=== PATIENT | female | born 1990 | race Caucasian/White ===

== ENCOUNTER → 2017-10-10 | Outpatient (CLI) | payer OTHER | END | disposition home or self-care (01) | LOC: C.LABSPEC 13:11 | PROVIDERS: ATTEND Physician Assistant | DX: Z12.4 Encounter for screening for malignant neoplasm of cervix (principal) ==

== ENCOUNTER → 2017-10-10 | Outpatient (CLI) | payer OTHER | END | disposition home or self-care (01) | LOC: C.PAPS 13:41 | PROVIDERS: ATTEND Physician Assistant | DX: Z12.4 Encounter for screening for malignant neoplasm of cervix (principal); R87.612 Low grade squamous intraepithelial lesion on cytologic smear of cervix (LGSIL) ==

== ENCOUNTER → 2017-10-27 | Outpatient (CLI) | payer OTHER | END | disposition home or self-care (01) | LOC: C.PATHSPEC 13:16 | PROVIDERS: ATTEND Obstetrics & Gynecology | DX: R87.612 Low grade squamous intraepithelial lesion on cytologic smear of cervix (LGSIL) (principal) ==

== ENCOUNTER 2020-05-24 05:58 | Inpatient (IN) ==
--- NOTE | 2020-05-24 13:56 | History & Physical Report ---
Date of Service May 24, 2020 Assessment & Plan (1) Encounter for induction of labor: 29 yo female presents to L&D at 40 3/7 weeks for IOL due to post dates. Proceed with induction of labor per Pitocin augmentation protocol. Initial labs and orders placed. Will continue to monitor patient. Pt desires epidural for pain control; consult placed to anesthesiology. Will await pt request for epidural. Anticipate . (2) : Pt states that she is having a boy (naming him Umer); she does plan to circumcise baby. Pt does plan to breastfeed. See above for induction of labor management. Admission and Anticipated Discharge Date Admission Date: May 24, 2020 History of Present Illness Primary Care Provider: NO PCP Nidia Smith is a 29 y/o female currently at 40 3/7 WGA with an RODNEY 05/21/20 as determined by LMP, confirmed by US#1, who is here for induction of due to post dates. Her was uncomplicated. - contractions; + movement; - fluid loss; - bloody show Had regular appointments with OB. Blood type: O+ Antibody screen: Neg H.4 (today) Hct: 35.2 (today) WBC: 14.1 (today) Plt: 250 (today) Rubella: immune (11/09/19) VDRL/RPR: nonreactive (11/09/19) Gonorrhea: neg (11/09/19) Chlamydia: neg (11/09/19) HIV: neg (11/09/19) HbSAg: neg (11/09/19) GBS: neg (04/27/20) COVID-19 negative 05/18/20 Other screens: cff-DNA: negative CF: declined SMA: declined Allergies Allergy/AdvReac Type Severity Reaction Status Date / Time No Known Allergies Allergy Verified 05/24/20 13:29 Home Medications Home Medications Medication Instructions Recorded Confirmed Type phdhbmcm-cys-Nt-FA 1 tab PO DAILY 05/24/20 05/24/20 History [] Patient History Medical History (Updated 05/24/20 @ 14:42 by Malorie Ramos) Encounter for anatomic survey Hx of varicella LGSIL on Pap smear of cervix Surgical History [place] teeth removed Family History Aunt Colorectal cancer Grandmother (Paternal) Ovarian cancer Grandfather (Maternal) Diabetes Social History Smoking Status: Never smoker Hx Alcohol Use: No Hx Substance Use: No Preferred Language: Frisian Crystal Slicer Required: No Beliefs That Will Affect Care: None marital status: Single marital status details: Braeden Almonte (27) [phone] Current Living Situation: Significant Other Current Living Situation Comment: lives with Jonas Deras current occupational status: employed 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 Denies shortness of breath. Denies chest pain. Denies breast pain. Denies dysuria, urinary frequency, or urinary urgency. Denies leg pain or leg swelling. Denies headache or changes in vision. Physical Exam Physical Exam: General: Alert, oriented. No acute distress. Cardiac: Regular rate and rhythm, no murmurs/rubs/gallops. Respiratory: Clear to auscultation bilaterally a/p, no wheezes/rales/rhonchi. No increased work of breathing. Symmetrical chest rise. No respiratory distress. Abdomen: Gravid. Full term. Bowel sounds active. No tenderness to palpation. Pelvic: Dilation 3cm; Effacement 80%; Station -[address] Leonard External FHT and external uterine monitors used; Category I tracing; moderate FHT variability. Mild int ctx. Lower Extremities: No lower extremity edema or swelling. No deep calf pain. Opal's negative bilaterally Results & Data ([facility]) Vital Signs (Past 12 Hours) Vital Signs Temp Pulse Resp BP 05/24/20 13:32 37.2 C 16 05/24/20 13:27 95 H 116/71 Supervising Physician Co-Signing Physician Notes Resident Physician Supervision Note: I interviewed and examined the patient. Discussed with Dr. Orantes and agree with findings and plan as documented in the note. Any exceptions or clarifications are listed here: at 40+ weeks here for induction for postdates. Uncomplicated . Favorable cervix. Category one strip. adria. Plan pit, arom, epidural. Anticipate . Documented By: Katie Leonard MD, FACOG
[2020-05-24 14:18] LABS: Hematocrit (blood only) 35.2 % (37-47); Hemoglobin 11.4 g/dL (12.0-16.0); Mean Corpuscular Hemoglobin 28.4 pg (25-34); Mean Corpuscular Volume 87.8 fL (80-100); Mean Platelet Volume 10.3 fL (7.4-10.4); Platelet Count 250 K/uL (130-400); RDW Coefficient of Variation 13.7 % (11.5-14.5); RDW Standard Deviation 43.9 fL (36.4-46.3); Red Blood Count 4.01 M/uL (4.2-5.4)
[2020-05-24 14:19] LABS: Mean Corpuscular Hgb Conc 32.4 g/dL (32-36)
[2020-05-24] MEDS ORDERED: OXYTOCIN 30 UNITS/500 ML BAG IV PRN (14:30)
[2020-05-24] MEDS ORDERED: OXYTOCIN 30 UNITS/500 ML BAG IV SCH (14:30)
--- NOTE | 2020-05-24 14:37 | Medical Student H&P ---
Date of Service May 24, 2020 Assessment & Plan (1) Encounter for induction of labor: - Begin Pitocin at 2 mU/min and raise by 2. Anticipate AROM to augment. - Plans for epidural. Anesthesia consult placed. - Anticipate . - Continue to monitor. Admission and Anticipated Discharge Date Admission Date: May 24, 2020 History of Present Illness Chief Complaint: Induction of Labor Primary Care Provider: NO PCP Nidia Smith is a 29 y/o currently at 40w3d with an RODNEY 05/21/20 as determined by LMP who is here for induction of labor due to postdate . She had an uncomplicated course. - contractions; + movement; - fluid loss; - bloody show Had regular appointments with OB. Labs Blood type: O+ Antibody screen: negative H.2 (03/03/20) Hct: 33.1% (03/03/20) Rubella: immune (11/09/19) VDRL/RPR: nonreactive (11/09/19) Gonorrhea: neg (11/09/19) Chlamydia: neg (11/09/19) HIV: neg (11/09/19) HbSAg: neg (11/09/19) GBS: neg (04/27/20) COVID: neg (05/18/20) Other Screens: Declined cfDNA, CF/SMA, AFP Allergies Allergy/AdvReac Type Severity Reaction Status Date / Time No Known Allergies Allergy Verified 05/24/20 13:29 Home Medications Home Medications Medication Instructions Recorded Confirmed Type wexwkdou-kan-Nn-FA 1 tab PO DAILY 05/24/20 05/24/20 History [] Patient History Medical History (Updated 05/24/20 @ 14:42 by Malorie Ramos) Encounter for anatomic survey Hx of varicella LGSIL on Pap smear of cervix Surgical History [place] teeth removed Family History Aunt Colorectal cancer Grandmother (Paternal) Ovarian cancer Grandfather (Maternal) Diabetes Social History Smoking Status: Never smoker Hx Alcohol Use: No Hx Substance Use: No Preferred Language: Sinhala Hand 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 Denies shortness of breath. Denies chest pain. Denies breast pain. Denies dysuria, urinary frequency, or urinary urgency. Denies leg pain or leg swelling. Denies headache or changes in vision. Physical Exam Physical Exam: General: Alert and oriented x 3. Patient in no acute distress and resting comfortably on ecam. Cardiac: Regular rate and rhythm. S1 and S2 present. No murmurs, rubs, or gallops. Respiratory: Clear to auscultation bilaterally a/p, no adventious lung sounds. No increased work of breathing. No respiratory distress. Abdomen: Gravid. Full term. Bowel sounds active. No tenderness to palpation. EFW 7-8#. Pelvic: Dilation 3cm; Effacement 80%; Station -[address] Leonard. External FHT and external uterine monitors used; Category I tracing; moderate FHT variability. Mild int ctx. Lower Extremities: No lower extremity calor, edema, or erythema. No deep calf pain. Opal's negative bilaterally. Results & Data ([facility]) Vital Signs (Past 12 Hours) Vital Signs Temp Pulse Resp BP 05/24/20 13:32 37.2 C 16 05/24/20 13:27 95 H 116/71 Code Status & VTE Plan VTE Prophylaxis Plan VTE Prophylaxis will be ordered: No Supervising Attestation Patient seen and evaluated with MS 2. Please see resident H&P.
[2020-05-24] MEDS: LACTATED RINGER'S 1,000 ML IV PRN ×3 (14:38→22:32)
[2020-05-24] MEDS ORDERED: BUPIVACAINE 0.25% 30 ML VIAL ONE ×2 (18:29→21:27)
[2020-05-24] MEDS ORDERED: ePHEDrine sulfate 50 MG/ML AMP ONE ×2 (18:29→21:27)
[2020-05-24] MEDS ORDERED: fentaNYL citrate 100 MCG/2 ML VIAL ONE ×2 (18:29→21:27)
[2020-05-24] MEDS ORDERED: fentaNYL 2MCG/ML ROPIV 1.25MG/ML 100 ML BAG EPI ONE ×2 (18:30→21:28)
--- NOTE | 2020-05-24 19:02 | Anesthesiology Consultation ---
Date of Service May 24, 2020 Covid 19 negative on 05/18/20. Assessment & Plan Chart Review Chart Review: Patient NOT seen in Pre Admission Testing and Acceptable Risk for Labor Epidural Consults Requested none ASA ASA2 Proposed Anesthesia Anesthesia Type: Labor Epidural and CSE Risk / Benefits Reviewed With: PT / POA / Parent / Guardian, Accepts Plan and Informed Consent Obtained History Height/Weight Height: 5 ft 3 in Weight: 80.739 kg Allergies Allergy/AdvReac Type Severity Reaction Status Date / Time No Known Allergies Allergy Verified 05/24/20 13:29 Medications Home Medications Medication Instructions Recorded Confirmed Last Taken xywysnxx-vfq-Xz-FA 1 tab PO DAILY 05/24/20 05/24/20 05/23/20 21:00 [] Active Medications Generic Name Dose Route Start Last Admin Trade Name Freq PRN Reason Stop Dose Admin Lactated Ringer's 1,000 mls @ 125 mls/hr 05/24/20 14:30 05/24/20 18:35 Lr IV 05/26/20 14:29 999 mls/hr .Q8H PRN Infusion L&D Protocol Protocol Oxytocin 30 units in 500 mls @ 12 mls/hr 05/24/20 14:30 05/24/20 18:00 Pitocin IV 06/23/20 14:29 0.72 units/hr .Q24H FERNY 12 mls/hr Titration Protocol 0.72 UNITS/HR NPO Date Last Intake of Fluids: 05/24/20 Time Last Intake of Fluids: 18:00 Date Last Intake of Solids: 05/24/20 Time Last Intake of Solids: 10:30 Past Medical History Medical History Encounter for anatomic survey Hx of varicella LGSIL on Pap smear of cervix Exercise / Class Metabolic Activity II 4-5 Yardwork/Stairs/Walk up hill Past Family History Family History Aunt Colorectal cancer Grandmother (Paternal) Ovarian cancer Grandfather (Maternal) Diabetes Past Surgical History Surgical History [place] teeth removed Past Anesthesia History No Hx of Anesthesia Complications and No Family Hx of Anesthesia Complications History of PONV No Hx of PONV and No Hx of Motion Sickness Social History Smoking Status: Never smoker Hx Alcohol Use: No Hx Substance Use: No substance use type: does not use Review of Systems no chest pain or sob Physical Exam Vital Signs Last Vital Signs Temp 37.2 C 05/24/20 13:32 Pulse 89 05/24/20 18:59 Resp 16 05/24/20 13:32 BP 136/79 05/24/20 18:37 Pulse Ox 100 05/24/20 18:59 ENMT Mouth: no TMJ abnormality Thyromental Distance: > or= 3.5 Finger Breadths Mallampati Class: II Neck normal visual inspection Respiratory normal respiratory effort Auscultation: lungs clear to auscultation bilaterally Cardiovascular Rate/Rhythm: regular rate and regular rhythm Musculoskeletal Spine: normal cervical ROM Neurologic moves all extremities Psychiatric Orientation: alert and oriented x 3 Testing Laboratory Results 05/24/20 14:09
[2020-05-24] MEDS ORDERED: NALOXONE HCL 1 MG in SODIUM CHLORIDE 0.9% 1000ML 1,000 ML IV PRN (19:15)
[2020-05-24] MEDS ORDERED: DiphenhydrAMINE HCL 50 MG/ML VIAL IV PRN (19:15)
[2020-05-24] MEDS ORDERED: NALOXONE HCL 0.4 MG/1 ML VIAL/CARP IV PRN (19:15)
[2020-05-24] MEDS ORDERED: ONDANSETRON INJ 2 MG/ML 2 ML VIAL IV PRN (19:15)
[2020-05-24] MEDS ORDERED: fentaNYL 2MCG/ML ROPIV 1.25MG/ML 100 ML BAG EPI PRN (19:15)
[2020-05-24] MEDS: ePHEDrine sulfate 50 MG/ML AMP IV PRN ×2 (22:00→22:03)
--- NOTE | 2020-05-24 22:54 | Labor Progress Brief Note ---
Date of Service May 24, 2020 Subjective Patient now much more comfortable with epidural Assessment & Plan (1) Encounter for induction of labor: Admission and Anticipated Discharge Date Admission Date: May 24, 2020 iupc placed. pit to mvus of >200. fetus category one. anticipate . Physical Exam Constitutional: WD/WN, vitals as above Psychiatric: A+Ox3, euthymic affect Genitourinary: cx--4/90/-2 toco--q2-4min, pit at 16 efm--130 with mod variability , accels present, no decels iupc placed Results & Data ([facility]) Vital Signs (Past 12 Hours) Vital Signs Temp Pulse Resp BP Pulse Ox 05/24/20 22:48 107 H 100 05/24/20 22:44 106 H 100 05/24/20 22:42 95 H 87 L 05/24/20 22:41 93 H 142/79 H 05/24/20 22:39 93 H 100 05/24/20 22:36 108 H 133/78 05/24/20 22:34 108 H 100 05/24/20 22:30 96 H 137/80 05/24/20 22:29 102 H 100 05/24/20 22:25 105 H 93 05/24/20 22:24 98 H 136/77 99 05/24/20 22:22 109 H 134/72 05/24/20 22:20 18 05/24/20 22:19 109 H 147/70 H 100 05/24/20 22:15 117 H 18 139/90 05/24/20 22:14 110 H 99 05/24/20 22:12 106 H 90 05/24/20 22:11 97 H 128/70 05/24/20 22:10 22 05/24/20 22:09 111 H 98 05/24/20 22:06 137 H 119/67 05/24/20 22:05 20 05/24/20 22:04 125 H 117/72 91 05/24/20 22:02 92 H 109/55 L 05/24/20 22:01 80 117/57 L 05/24/20 22:00 22 05/24/20 21:59 78 100 05/24/20 21:58 86 84/49 L 05/24/20 21:54 104 H 100 05/24/20 21:51 96 H 91 05/24/20 21:49 80 100 05/24/20 21:46 71 113/57 L 05/24/20 21:44 74 100 05/24/20 21:39 83 100 05/24/20 21:34 79 100 05/24/20 21:31 95 H 125/80 05/24/20 21:29 76 99 05/24/20 21:24 87 100 05/24/20 21:20 37.0 C 18 05/24/20 21:19 78 100 05/24/20 21:16 79 115/67 05/24/20 21:14 81 100 05/24/20 21:09 86 100 05/24/20 21:04 82 99 05/24/20 21:01 80 112/65 05/24/20 20:59 82 99 05/24/20 20:54 82 99 05/24/20 20:49 88 99 05/24/20 20:47 81 119/68 05/24/20 20:44 90 18 99 05/24/20 20:39 82 100 05/24/20 20:34 81 99 05/24/20 20:33 81 115/66 05/24/20 20:29 84 100 05/24/20 20:24 86 100 05/24/20 20:19 83 99 05/24/20 20:16 82 110/57 L 05/24/20 20:14 83 100 05/24/20 20:09 83 100 05/24/20 20:04 85 100 05/24/20 20:01 77 114/60 05/24/20 20:00 18 05/24/20 19:59 86 99 05/24/20 19:54 82 100 05/24/20 19:49 91 H 100 05/24/20 19:48 97 H 117/78 05/24/20 19:46 36.9 C 20 05/24/20 19:44 100 H 100 05/24/20 19:39 99 H 99 05/24/20 19:34 105 H 100 05/24/20 19:30 98 H 16 111/63 05/24/20 19:29 102 H 99 05/24/20 19:26 99 H 120/65 05/24/20 19:25 18 05/24/20 19:24 102 H 100 05/24/20 19:20 16 05/24/20 19:19 105 H 114/73 100 05/24/20 19:17 102 H 114/69 05/24/20 19:15 96 H 16 126/78 05/24/20 19:14 98 H 100 05/24/20 19:13 87 125/67 05/24/20 19:11 89 120/66 05/24/20 19:09 85 123/66 100 05/24/20 19:04 105 H 100 05/24/20 18:59 89 100 05/24/20 18:57 36.8 C 18 05/24/20 18:54 87 100 05/24/20 18:49 87 100 05/24/20 18:44 88 100 05/24/20 18:39 90 100 05/24/20 18:37 97 H 136/79 05/24/20 18:34 89 100 05/24/20 18:32 88 129/78 05/24/20 17:37 86 119/73 05/24/20 16:37 87 117/71 05/24/20 15:37 77 102/55 L 05/24/20 14:37 100 H 116/73 05/24/20 13:32 37.2 C 16 05/24/20 13:27 95 H 116/71 Coding Level of Care Code None Diagnoses Encounter for induction of labor Z34.90
[2020-05-25] MEDS ORDERED: ACETAMINOPHEN 325 MG TAB PO PRN (02:46)
[2020-05-25] MEDS ORDERED: OXYCODONE/ACETAMINOPHEN 5mg/325mg TAB PO PRN (02:46)
--- NOTE | 2020-05-25 02:53 | Delivery Summary ---
Vaginal Delivery Summary Date of Service May 25, 2020 Vaginal Delivery Summary Pre-operative Diagnosis: Postdates at 40+ weeks induction of labor Post-operative Diagnosis: same maternal exhaustion Procedure: pitocin induction epidural srom vavd bilateral labial lacs and first degree with repair EBL: 400cc Anesthesia: epidural Procedure: The patient pushed for about 1 hour and twenty minutes and brought the baby down to +2-3 station. She started to note exhaustion. I offered vacuum assist. Discussed r/b/se with the patient and she agrees. The vacuum was applied to the vertex in bryce position and over two contractions, with no pop offs, she delivered a viable male infant in bryce position. The vacuum was removed, the pressure never greater than 50mm h2o.The rest of the was then delivered without difficulty. The baby was vigorous. The nose and mouth were bulb suctioned and the infant was placed in the maternal abdomen for drying and attention. Cord was clamped and cut at one minute of life. Cord blood and segment obtained. Placenta delivered spontaneous, intact with a three vessel cord. Cervix/sulci/rectum were intact. Bilateral labial lacerations and a first degree perineal laceration was repaired in the normal standard fashion. Hemostasis obtained with dilute pitocin and fundal massage. Apgars were 8/9. Mother and baby doing well at the end of the delivery. [facility] Vaginal Delivery Charge Vaginal Delivery Codes: 02324 global code for the antepartum, delivery, and post- (vacuum assisted vaginal delivery)
[2020-05-25] MEDS ORDERED: BENZOCAINE 20% AER SPR 82.5 GM CAN EXT PRN (02:59)
[2020-05-25] MEDS ORDERED: SUPERCREAM 0.870% 15 GM JAR EXT PRN (02:59)
[2020-05-25] MEDS ORDERED: bisacodyL 10 MG SUPP PR PRN (02:59)
[2020-05-25] MEDS ORDERED: OXYTOCIN 30 UNITS/500 ML BAG IV PRN (02:59)
[2020-05-25] MEDS ORDERED: HYDROCORTISONE ACETATE 25 MG SUPP PR PRN (02:59)
[2020-05-25] MEDS ORDERED: DIPHTHERIA/TETANUS/PERTUSSIS 0.5 ML SYR/VIAL IM ONE (02:59)
[2020-05-25] MEDS: IBUPROFEN 600 MG TAB PO PRN ×3 (03:29→17:28)
[2020-05-25] MEDS: PRENATAL VITAMIN 1 TAB PO SCH (08:39)
[2020-05-25] MEDS: DOCUSATE SODIUM 100 MG CAP PO SCH ×2 (08:39→21:02)
--- NOTE | 2020-05-25 09:01 | Anesthesia Procedure Note ---
Date of Service May 25, 2020 Anesthesia Post Epidural Note Vital Signs Vital Signs: Temp Pulse Resp BP Pulse Ox 36.8 C 94 H 18 115/73 100 05/25/20 05:45 05/25/20 05:45 05/25/20 05:45 05/25/20 05:45 05/25/20 02:18 Pain Intensity Lower Abdomen: Pain Intensity: 0 Bilateral Episiotomy/Laceration: Pain Intensity: 3 Notes Mental Status: alert / awake / arousable and participated in evaluation Nausea / Vomiting: adequately controlled Pain: adequately controlled Airway Patency, RR, SpO2: stable & adequate BP & HR: stable & adequate Hydration State: stable & adequate Neuraxial Anesthesia: was administered and sensory block is resolving Anesthetic Complications: no major complications apparent Epidural: Removed without complications and With tip intact
[2020-05-26 06:12] LABS: Hematocrit (blood only) 28.3 % (37-47); Hemoglobin 9.4 g/dL (12.0-16.0)
--- NOTE | 2020-05-26 06:38 | Obstetrical Progress Note ---
Date of Service <Karla Orantes DO - Last Filed: 05/26/20 07:21> May 26, 2020 Assessment & Plan <Karla Orantes DO - Last Filed: 05/26/20 07:21> (1) Normal course: - Feels well today. Eating well, voiding well, ambulating well. - Plan for lactaction consult prior to d/c home. - Pain well controlled with ibuprofen 600mg Q4H PRN - Routine care -- OOB, ambulation, diet progression as tolerated - After discharge will have 6 week follow-up with Dr. Leonard - Pt would like to be d/c home today. - Requesting rx for breast pump Subjective <Karla Orantes DO - Last Filed: 05/26/20 07:21> Nidia Gonzalez is a 29 y/o female who is PPD #1 following IOL with VAVD and epidural at 40 3/7 weeks. She reports feeling well overall this morning. Minimal abdominal cramping and 2/10 pain well managed on analgesics. Voiding without difficulty. Tolerating meals overnight without difficulty. Patient has been able to ambulate some. + passing gas and no bowel movement. Has persistent lochia with improvement this morning. Currently . Review of Systems Denies fever or chills. Denies shortness of breath or cough. Denies chest pain. Denies breast pain. Denies nausea or vomiting. Denies dysuria. Denies leg pain or leg swelling. Denies headache or changes in vision. Physical Exam <Karla Orantes DO - Last Filed: 05/26/20 07:21> General: Alert, oriented. No acute distress. Cardiac: Regular rate and rhythm. No murmurs. Respiratory: Clear to auscultation bilaterally a/p, no wheezes/rales/rhonchi. No increased work of breathing. Symmetrical chest rise. No respiratory distress. Abdomen: Soft, nontender, nondistended. Bowel sounds present. Uterus: Uterine fundus firm, palpable 1 cm below umbilicus. Lower Extremities: No lower extremity edema or swelling. No deep calf pain. Opal's negative bilaterally. Results & Data ([facility]) <Karla Orantes DO - Last Filed: 05/26/20 07:21> Vital Signs (Past 12 Hours) Vital Signs Temp Pulse Resp BP 05/26/20 00:00 36.7 C 90 18 120/77 05/25/20 20:00 37.0 C 105 H 18 124/78 <Viktor Johnston Jr, MD, FACOG - Last Filed: 05/26/20 07:46> Co-Signing Physician Notes Resident Physician Supervision Note: I was present with Dr. Orantes during the history and exam. I discussed the case with the resident and agree with the findings and plan as documented in the note. Any exceptions or clarifications are listed here: Pt desires d/c, instructions given. F/u in 6 weeks Documented By: Viktor Johnston Jr, MD, FACOG
[2020-05-26] MEDS: IBUPROFEN 600 MG TAB PO PRN (07:28)
[2020-05-26] MEDS: PRENATAL VITAMIN 1 TAB PO SCH (07:28)
[2020-05-26] MEDS: DOCUSATE SODIUM 100 MG CAP PO SCH (07:28)
[2020-05-26] MEDS ORDERED: bisacodyL 5 MG TABEC PO SCH (20:00)
--- NOTE | 2020-05-30 02:49 | Discharge Summary (DS) ---
ADMIT DIAGNOSIS: Intrauterine for induction of labor at 40 and 3/7th weeks for postdates. DISCHARGE DIAGNOSES: 1. Intrauterine for induction of labor at 40 and 3/7th weeks for postdates. 2. Maternal exhaustion. PROCEDURES: Pitocin induction, epidural spontaneous rupture of membranes. Vacuum assisted vaginal delivery for maternal exhaustion and bilateral labial lacerations and first degree with repair. HISTORY OF PRESENT ILLNESS: The patient is a 29-year-old white female 1, para 0 at 40 and 3/7th weeks gestational age who presents to labor and delivery for induction of labor for postdates. Her was uncomplicated. For the rest the patient's history and physical, please see her history and physical. ASSESSMENT: This is a at 40 and 3/7th weeks who presents for induction of labor for postdates. HOSPITAL COURSE: The patient was admitted. She underwent Pitocin augmentation of labor. She got uncomfortable requiring an epidural anesthetic. Shortly thereafter, she had spontaneous rupture for clear fluid. She progressed to complete-complete and began pushing. She pushed with fairly good effort for about an hour and 20 minutes, bringing the baby down to +3 station. At that point in time maternal exhaustion was noted and she was not pushing nearly as effectively. I offered a vacuum assist. They agreed. The risks, benefits and side effects of vacuum assisted vaginal delivery were discussed with the patient and her and they agreed. The bladder had been previously drained of urine. The vacuum was applied to the vertex in ELIAS position at +3 station and over 2 contractions with no pop off, she delivered a viable female infant. For the rest of the details of the delivery and repair, please see the dictated delivery note. Bilateral labial lacerations and first-degree perineal laceration was repaired in the normal standard fashion. The patient's course was uncomplicated. She was discharged to home having met all criteria and follow up in 6 weeks for exam.
== END 2020-05-26 16:30 | disposition home or self-care (01) | DRG 807 ==
LOC: 4S1 13:13 → 4S2 05-25 05:00

== ENCOUNTER 2022-07-31 18:24 | Inpatient (IN) ==
[2022-07-31] MEDS ORDERED: OXYTOCIN 30 UNITS/500 ML BAG IV PRN ×2 (19:01→23:02)
[2022-07-31] MEDS ORDERED: LACTATED RINGER'S 1,000 ML IV PRN (19:01)
[2022-07-31] MEDS ORDERED: LIDOCAINE 1% LOCAL 20 ML VIAL INFIL PRN (19:01)
--- NOTE | 2022-07-31 19:04 | History & Physical Report ---
Date of Service July 31, 2022 Assessment & Plan (1) 40 weeks gestation of : (2) Normal labor: Plan admit, expectant management. fetus category one. epidural on demand, arom/pit if indicated. anticipate . History of Present Illness Chief Complaint: contractions Primary Care Provider: Jolly Toney DO Patient is a 31yowf with iup at 40 4/7 weeks who presents complaining of contractions. no lof/vb. ON for induction tomorrow, membranes stripped in office today, was 4cm. and Delivery Plans Low lying placenta -recheck at 32 wks - resolved at 25 wks 6.9X 2.8X 2.4CM Complex placental cyst at 20 wks (24.9ccs) -repeat at 24 wks - 4.9X2.3X1.8CM= 11.3CCS -f/u at 28 wks - 30.5cc --36 weeks cyst not mentioned, small placental [place] nl for GA, aga - q4week growth and cyst eval MOderna x 2 Flu vaccine given 07/05/22- OB Labs: Blood Type O Positive 12/20/21 Antibody Screen NEGATIVE 12/20/21 Hemoglobin 10.4 g/dl (12.0-16.0) L 05/07/22 Hematocrit 31.7 % (34.1-44.9) L 05/07/22 Mean Corpuscular Volume 87.0 fL (80-100) 12/20/21 Platelet Count 351 K/uL (130-400) 12/20/21 Rubella IgG Antibody Immune (Immune) 12/20/21 Rapid Plasma Reagin Nonreactive (Nonreactive) 12/20/21 Hepatitis B Surface Antigen Neg (Neg) 12/20/21 Hepatitis C Antibody Neg (Neg) 12/20/21 HIV (1&2) Ab and P24 Ag, 4th Gener Neg (Neg) 12/20/21 Glucose 1 Hour 50 gm Load 151 mg/dl (70-130) H 02/11/22 OB Optional Labs: Chlamydia trachomatis RNA NOT DETECTED (NOT DETECTED) 12/20/21 Neisseria gonorrhoeae RNA NOT DETECTED (NOT DETECTED) 12/20/21 Labs Reviewed: csf/sma-negative--mln cfdna-low risk--mln Declines msafp--mln passed 2 hr gtt x 2. Allergies Allergy/AdvReac Type Severity Reaction Status Date / Time No Known Allergies Allergy Verified 07/31/22 13:13 Home Medications Medication Instructions Recorded Confirmed Type jkjpumab-jjf-Nn-FA 1 mg 1 tab PO DAILY 05/24/20 07/31/22 History tablet Patient History Medical History Hx of varicella LGSIL on Pap smear of cervix Prior miscarriage with , antepartum Surgical History [place] teeth removed Family History Aunt Colorectal cancer Grandmother (Paternal) Ovarian cancer Grandfather (Maternal) Diabetes Denies family history of Breast cancer Social History Smoking Status: Never smoker Hx Alcohol Use: No Hx Substance Use: No Preferred Language: Italian Communication Ability: Effective 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: No Beliefs That Will Affect Care: None marital status: marital status details: Braeden Almonte (29) [phone] Current Living Situation: Spouse and Family Current Living Situation Comment: lives with spouse, son, dog current occupational status: unemployed 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 Date GA wks Lbr Lgth wt Sex Type del Anes Place Del Prov ? Comment 05/25/20 40 8lbs 5.7 oz M E pidural [facility] Dr Leonard No 09/18/21 Aborted-Spontaneous Physical Exam Constitutional: WD/WN, vitals as above Gastrointestinal (Abdomen): soft, gravid, nt Psychiatric: A+Ox3, euthymic affect Genitourinary: cx--5/90/-2 toco--q3-5min efm--120s wtih mod variability, accels to 160s, no decels Results & Data ([facility]) Vital Signs (Past 12 Hours) Vital Signs Temp Pulse Resp BP 07/31/22 18:32 36.9 C 110 H 18 129/84 Coding Level of Care Code None Diagnoses 40 weeks gestation of Z3A.40 Normal labor O80; Z37.9
[2022-07-31 19:35] LABS: Hematocrit (blood only) 34.8 % (34.1-44.9); Hemoglobin 11.6 g/dl (12.0-16.0); Mean Corpuscular Hemoglobin 28.8 pg (25.0-34.0); Mean Corpuscular Hgb Conc 33.3 g/dL (32.0-36.0); Mean Corpuscular Volume 86.4 fL (80.0-100.0); Platelet Count 220 K/uL (130-400); RDW Coefficient of Variation 15.2 % (11.5-14.5); RDW Standard Deviation 47.7 fL (36.4-46.3); Red Blood Count 4.03 M/uL (3.93-5.22); White Blood Count 17.59 K/ul (4.8-10.8)
[2022-07-31] MEDS ORDERED: NALBUPHINE HCL INJ 10 MG/ML AMP IV PRN (20:36)
[2022-07-31] MEDS ORDERED: diphenhydrAMINE 50 MG/ML VIAL IV PRN (20:36)
[2022-07-31] MEDS ORDERED: NALOXONE HCL 1 MG in SODIUM CHLORIDE 0.9% 1000ML 1,000 ML IV PRN (20:36)
[2022-07-31] MEDS ORDERED: ePHEDrine sulfate 50 MG/ML AMP IV PRN (20:36)
[2022-07-31] MEDS ORDERED: ONDANSETRON INJ 2 MG/ML 2 ML VIAL IV PRN (20:36)
[2022-07-31] MEDS ORDERED: NALOXONE HCL 0.4 MG/1 ML VIAL/CARP IV PRN (20:36)
[2022-07-31] MEDS ORDERED: fentaNYL 2MCG/ML ROPIVACAINE 1.25MG/ML 100 ML BAG EPI PRN (20:36)
--- NOTE | 2022-07-31 20:38 | Anesthesiology Consultation ---
Date of Service July 31, 2022 Assessment & Plan Chart Review Chart Review: Patient NOT seen in Pre Admission Testing and Acceptable Risk for Labor Epidural Consults Requested none ASA ASA2 Proposed Anesthesia Anesthesia Type: Labor Epidural and CSE Risk / Benefits Reviewed With: PT / POA / Parent / Guardian, Accepts Plan and Informed Consent Obtained History Height/Weight Height: 5 ft 5 in Weight: 84.368 kg Allergies Allergy/AdvReac Type Severity Reaction Status Date / Time No Known Allergies Allergy Verified 07/31/22 13:13 Medications Home Medications Medication Instructions Recorded Confirmed Last Taken hfagvqas-pua-Bl-FA 1 mg 1 tab PO DAILY 05/24/20 07/31/22 07/30/22 22:00 tablet Active Medications Generic Name Dose Route Start Last Admin Trade Name Freq PRN Reason Stop Dose Admin Lactated Ringer's 1,000 mls @ 125 mls/hr 07/31/22 19:01 07/31/22 20:10 Lr IV 08/02/22 19:00 999 mls/hr .Q8H PRN Administration L&D Protocol Protocol NPO Date Last Intake of Fluids: 07/31/22 Time Last Intake of Fluids: 18:00 Date Last Intake of Solids: 07/31/22 Time Last Intake of Solids: 16:00 Past Medical History Medical History Hx of varicella LGSIL on Pap smear of cervix Prior miscarriage with , antepartum Exercise / Class Metabolic Activity II 4-5 Yardwork/Stairs/Walk up hill Past Family History Family History Aunt Colorectal cancer Grandmother (Paternal) Ovarian cancer Grandfather (Maternal) Diabetes Denies family history of Breast cancer Past Surgical History Surgical History [place] teeth removed Past Anesthesia History No Hx of Anesthesia Complications and No Family Hx of Anesthesia Complications History of PONV No Hx of PONV and No Hx of Motion Sickness Social History Smoking Status: Never smoker Hx Alcohol Use: No Hx Substance Use: No substance use type: does not use Review of Systems no chest pain or sob Physical Exam Vital Signs Last Vital Signs Temp 36.9 C 07/31/22 18:32 Pulse 104 H 07/31/22 20:35 Resp 20 07/31/22 20:10 BP 115/63 07/31/22 20:11 Pulse Ox 87 L 07/31/22 20:35 ENMT Mouth: no TMJ abnormality Thyromental Distance: > or= 3.5 Finger Breadths Mallampati Class: II Neck normal visual inspection Respiratory normal respiratory effort Auscultation: lungs clear to auscultation bilaterally Cardiovascular Rate/Rhythm: regular rate and regular rhythm Musculoskeletal Spine: normal cervical ROM Neurologic moves all extremities Psychiatric Orientation: alert and oriented x 3 Testing Laboratory Results 07/31/22 19:29
[2022-07-31] MEDS ORDERED: ePHEDrine sulfate 50 MG/ML AMP ONE (20:57)
[2022-07-31] MEDS ORDERED: SODIUM CHLORIDE 0.9% INJ 10 ML VIAL ONE (20:57)
[2022-07-31] MEDS ORDERED: fentaNYL citrate 100 MCG/2 ML VIAL ONE (20:57)
[2022-07-31] MEDS ORDERED: BUPIVACAINE 0.25% 30 ML VIAL ONE (20:57)
[2022-07-31] MEDS ORDERED: LIDOCAINE 2%/EPINEPHRINE 1:200,000 20 ML SDV ONE (20:57)
[2022-07-31] MEDS ORDERED: fentaNYL 2MCG/ML ROPIVACAINE 1.25MG/ML 100 ML BAG EPI ONE (20:58)
--- NOTE | 2022-07-31 21:55 | Labor Progress Brief Note ---
Date of Service July 31, 2022 Subjective comfortable with epidural Assessment & Plan (1) Normal labor: Plan continue current management. fetus category one. anticipate . Admission and Anticipated Discharge Date Admission Date: July 31, 2022 Physical Exam Physical Exam: cx--7-8/100/-1 arom--copious clear toco--q2-5min efm--140s with mod variability, accels to 170s, no decels Results & Data ([place]) Vital Signs (Past 12 Hours) Vital Signs Temp Pulse Resp BP Pulse Ox 07/31/22 21:50 98 07/31/22 21:50 96 H 07/31/22 21:49 89 07/31/22 21:49 103/57 L 07/31/22 21:45 96 07/31/22 21:45 88 07/31/22 21:44 89 07/31/22 21:44 89/53 L 07/31/22 21:40 96 07/31/22 21:40 91 H 07/31/22 21:35 96 07/31/22 21:35 90 07/31/22 21:30 96 07/31/22 21:30 88 07/31/22 21:26 101 H 07/31/22 21:26 129/67 07/31/22 21:25 97 07/31/22 21:25 96 H 07/31/22 21:21 102 H 07/31/22 21:21 134/83 07/31/22 21:20 97 07/31/22 21:20 95 H 07/31/22 21:16 102 H 07/31/22 21:16 114/64 07/31/22 21:15 98 07/31/22 21:15 101 H 07/31/22 21:12 97 H 07/31/22 21:12 137/92 07/31/22 21:10 98 07/31/22 21:10 99 H 07/31/22 21:07 101 H 07/31/22 21:07 129/70 07/31/22 21:05 98 07/31/22 21:05 108 H 07/31/22 21:00 18 07/31/22 21:00 18 07/31/22 21:01 102 H 07/31/22 21:01 110/67 07/31/22 21:00 98 07/31/22 21:00 102 H 07/31/22 20:59 94 H 07/31/22 20:59 121/74 07/31/22 20:57 94 H 07/31/22 20:57 113/71 07/31/22 20:55 100 07/31/22 20:55 100 H 07/31/22 20:55 117/65 07/31/22 20:53 96 H 07/31/22 20:53 126/69 07/31/22 20:49 18 07/31/22 20:49 18 07/31/22 20:51 94 H 07/31/22 20:51 124/65 07/31/22 20:50 100 07/31/22 20:49 96 H 07/31/22 20:50 95 H 07/31/22 20:49 123/67 07/31/22 20:47 96 H 07/31/22 20:47 136/68 07/31/22 20:45 100 07/31/22 20:45 106 H 07/31/22 20:40 100 07/31/22 20:40 112 H 07/31/22 20:35 87 L 07/31/22 20:35 104 H 07/31/22 20:30 100 07/31/22 20:30 104 H 07/31/22 20:25 100 07/31/22 20:25 90 07/31/22 20:20 100 07/31/22 20:20 98 H 07/31/22 20:15 99 07/31/22 20:15 92 H 07/31/22 20:14 94 07/31/22 20:14 95 H 07/31/22 20:11 98 H 07/31/22 20:11 115/63 07/31/22 20:10 20 07/31/22 20:10 20 07/31/22 19:37 102 H 07/31/22 19:37 115/71 07/31/22 18:32 36.9 C 110 H 18 129/84 Coding Level of Care Code None Diagnoses Normal labor O80; Z37.9
[2022-07-31] MEDS ORDERED: BENZOCAINE 20% AER SPR 82.5 GM CAN EXT PRN (23:02)
[2022-07-31] MEDS ORDERED: oxyCODONE/ACETAMINOPHEN 5mg/325mg TAB PO PRN (23:02)
[2022-07-31] MEDS ORDERED: DIPHTHERIA/TETANUS/PERTUSSIS 0.5 ML SYR/VIAL IM ONE (23:02)
[2022-07-31] MEDS ORDERED: HYDROCORTISONE ACETATE 25 MG SUPP PR PRN (23:02)
[2022-07-31] MEDS ORDERED: bisacodyL 10 MG SUPP PR PRN (23:02)
[2022-07-31] MEDS ORDERED: ACETAMINOPHEN 325 MG TAB PO PRN (23:02)
--- NOTE | 2022-07-31 23:07 | Delivery Summary ---
Vaginal Delivery Summary Date of Service July 31, 2022 Vaginal Delivery Summary [facility] Pre-operative Diagnosis: at 40+ weeks labor Post-operative Diagnosis: same Procedure: epidural arom EBL: 300cc Anesthesia: epidural Procedure: The patient arrived in active labor. Walked, got epidural and then arom at 8cm. Progressed to c/c/+1. The patient pushed for 3 contractions to deliver a viable male infant in doa position. The nose and mouth were bulb suctioned on the perineum and the rest of the was then delivered without difficulty. The baby was vigorous. The nose and mouth were again bulb suctioned and the infant was placed in the maternal abdomen for drying and attention. Cord was clamped and cut at one minute of life. Cord blood and segment obtained. Placenta delivered via manual extraction, appeared intact, no abnl noted. Cervix/sulci/rectum/perineum were intact. Hemostasis obtained with dilute pitocin and fundal massage. Apgars were pending. Mother and baby doing well at the end of the delivery. [facility] [place] Charge Delivery Type Details: [facility]
--- NOTE | 2022-07-31 23:55 | Anesthesia Procedure Note ---
Date of Service July 31, 2022 Anesthesia Post Epidural Note Vital Signs Vital Signs: Temp Pulse Resp BP Pulse Ox 36.7 C 93 H 18 123/59 L 100 07/31/22 23:00 07/31/22 23:43 07/31/22 23:45 07/31/22 23:43 07/31/22 22:50 Pain Intensity Bilateral Abdomen: Pain Intensity: 3 Notes Mental Status: alert / awake / arousable and participated in evaluation Nausea / Vomiting: adequately controlled Pain: adequately controlled Airway Patency, RR, SpO2: stable & adequate BP & HR: stable & adequate Hydration State: stable & adequate Neuraxial Anesthesia: was administered and sensory block is resolving Anesthetic Complications: no major complications apparent and Pt Satisfied with anesthetic care Epidural: Removed without complications and With tip intact
[2022-08-01] MEDS: IBUPROFEN 600 MG TAB PO PRN ×4 (04:15→20:14)
--- NOTE | 2022-08-01 06:14 | Obstetrical Progress Note ---
Date of Service <Rose Gutierrez DO - Last Filed: 08/01/22 07:03> August 01, 2022 Assessment & Plan <Rose Gutierrez DO - Last Filed: 08/01/22 07:03> (1) Status post vaginal delivery: continue OOB, ambulation, diet as tolerated <Katie Leonard MD, FACOG - Last Filed: 08/01/22 07:14> (1) Status post vaginal delivery: Subjective <Rose Gutierrez - Last Filed: 08/01/22 07:03> Nidia is a 31 y/o female who is now PPD # 1 following spontaneous vaginal delivery at 40 4/7 weeks. Reports feeling well overall this morning. Mild abdominal cramping pain well managed on analgesics. Voiding. Tolerating meals overnight and able to ambulate some. Some persistent lochia with some improvement this morning. Breast feeding. Review of Systems Denies fever, chills, sweats Denies shortness of breath, difficulty breathing, chest pain, palpitations, chest pressure. Denies breast pain. Denies dysuria. Denies headache or changes in vision. Physical Exam <Rose Gutierrez - Last Filed: 08/01/22 07:03> General: Alert, oriented. No acute distress. Cardiac: Regular rate and rhythm, no murmurs/rubs/gallops. Respiratory: Clear to auscultation bilaterally a/p, no wheezes/rales/rhonchi. No increased work of breathing. Symmetrical chest rise. No respiratory distress. Abdomen: Soft, nontender, nondistended. Uterus: Uterine fundus firm, palpable 3 cm below umbilicus. Lower Extremities: No lower extremity edema or swelling. No deep calf pain. Opal's negative bilaterally. Results & Data ([facility]) <Rose Gutierrez - Last Filed: 08/01/22 07:03> Vital Signs (Past 12 Hours) Vital Signs Temp Pulse Pulse Resp BP BP Pulse Ox 08/01/22 04:00 36.7 C 107 H 18 116/65 08/01/22 01:05 36.9 C 109 H 18 126/59 L 08/01/22 00:30 36.8 C 18 08/01/22 00:00 18 07/31/22 23:45 18 07/31/22 23:30 18 07/31/22 23:15 18 07/31/22 23:00 36.7 C 18 08/01/22 01:12 109 H 126/59 L 08/01/22 01:10 120 H 159/81 H 08/01/22 00:58 105 H 124/64 08/01/22 00:43 100 H 127/64 08/01/22 00:28 102 H 126/67 08/01/22 00:19 89 128/70 07/31/22 23:58 97 H 07/31/22 23:58 135/62 07/31/22 23:43 93 H 07/31/22 23:43 123/59 L 07/31/22 23:28 100 H 07/31/22 23:28 128/62 07/31/22 23:13 101 H 07/31/22 23:13 121/63 07/31/22 23:01 101 H 07/31/22 23:01 125/61 07/31/22 22:50 100 07/31/22 22:50 122 H 07/31/22 22:45 99 07/31/22 22:45 110 H 07/31/22 22:45 134/80 07/31/22 22:40 99 07/31/22 22:40 93 H 07/31/22 22:30 18 07/31/22 22:30 18 07/31/22 22:35 98 07/31/22 22:35 92 H 07/31/22 22:30 99 07/31/22 22:30 100 H 07/31/22 22:28 93 H 07/31/22 22:28 111/59 L 07/31/22 22:25 99 07/31/22 22:25 95 H 07/31/22 22:20 98 07/31/22 22:20 100 H 07/31/22 22:15 98 07/31/22 22:15 92 H 07/31/22 22:13 94 H 07/31/22 22:13 109/53 L 07/31/22 22:10 97 07/31/22 22:10 94 H 07/31/22 22:05 96 07/31/22 22:05 95 H 07/31/22 22:00 18 07/31/22 22:00 18 07/31/22 21:53 18 07/31/22 21:53 36.8 C 18 07/31/22 22:00 97 07/31/22 21:59 91 H 07/31/22 22:00 93 H 07/31/22 21:59 112/53 L 07/31/22 21:55 95 07/31/22 21:55 108 H 07/31/22 21:50 98 07/31/22 21:50 96 H 07/31/22 21:49 89 07/31/22 21:49 103/57 L 07/31/22 21:45 96 07/31/22 21:45 88 07/31/22 21:44 89 07/31/22 21:44 89/53 L 07/31/22 21:40 96 07/31/22 21:40 91 H 07/31/22 21:35 96 07/31/22 21:35 90 07/31/22 21:30 96 07/31/22 21:30 88 07/31/22 21:26 101 H 07/31/22 21:26 129/67 07/31/22 21:25 97 07/31/22 21:25 96 H 07/31/22 21:21 102 H 07/31/22 21:21 134/83 07/31/22 21:20 97 07/31/22 21:20 95 H 07/31/22 21:16 102 H 07/31/22 21:16 114/64 07/31/22 21:15 98 07/31/22 21:15 101 H 07/31/22 21:12 97 H 07/31/22 21:12 137/92 07/31/22 21:10 98 07/31/22 21:10 99 H 07/31/22 21:07 101 H 07/31/22 21:07 129/70 07/31/22 21:05 98 07/31/22 21:05 108 H 07/31/22 21:00 18 07/31/22 21:00 18 07/31/22 21:01 102 H 07/31/22 21:01 110/67 07/31/22 21:00 98 07/31/22 21:00 102 H 07/31/22 20:59 94 H 07/31/22 20:59 121/74 07/31/22 20:57 94 H 07/31/22 20:57 113/71 07/31/22 20:55 100 07/31/22 20:55 100 H 07/31/22 20:55 117/65 07/31/22 20:53 96 H 07/31/22 20:53 126/69 07/31/22 20:49 18 07/31/22 20:49 18 07/31/22 20:51 94 H 07/31/22 20:51 124/65 07/31/22 20:50 100 07/31/22 20:49 96 H 07/31/22 20:50 95 H 07/31/22 20:49 123/67 07/31/22 20:47 96 H 07/31/22 20:47 136/68 07/31/22 20:45 100 07/31/22 20:45 106 H 07/31/22 20:40 100 07/31/22 20:40 112 H 07/31/22 20:35 87 L 07/31/22 20:35 104 H 07/31/22 20:30 100 07/31/22 20:30 104 H 07/31/22 20:25 100 07/31/22 20:25 90 07/31/22 20:20 100 07/31/22 20:20 98 H 07/31/22 20:15 99 07/31/22 20:15 92 H 07/31/22 20:14 94 07/31/22 20:14 95 H 07/31/22 20:11 98 H 07/31/22 20:11 115/63 07/31/22 20:10 20 07/31/22 20:10 20 07/31/22 19:37 102 H 07/31/22 19:37 115/71 07/31/22 18:32 36.9 C 110 H 18 129/84 O2 Del Method 08/01/22 04:00 Room Air 08/01/22 01:05 Room Air 08/01/22 00:30 08/01/22 00:00 07/31/22 23:45 07/31/22 23:30 07/31/22 23:15 07/31/22 23:00 08/01/22 01:12 08/01/22 01:10 08/01/22 00:58 08/01/22 00:43 08/01/22 00:28 08/01/22 00:19 07/31/22 23:58 07/31/22 23:58 07/31/22 23:43 07/31/22 23:43 07/31/22 23:28 07/31/22 23:28 07/31/22 23:13 07/31/22 23:13 07/31/22 23:01 07/31/22 23:01 07/31/22 22:50 07/31/22 22:50 07/31/22 22:45 07/31/22 22:45 07/31/22 22:45 07/31/22 22:40 07/31/22 22:40 07/31/22 22:30 07/31/22 22:30 07/31/22 22:35 07/31/22 22:35 07/31/22 22:30 07/31/22 22:30 07/31/22 22:28 07/31/22 22:28 07/31/22 22:25 07/31/22 22:25 07/31/22 22:20 07/31/22 22:20 07/31/22 22:15 07/31/22 22:15 07/31/22 22:13 07/31/22 22:13 07/31/22 22:10 07/31/22 22:10 07/31/22 22:05 07/31/22 22:05 07/31/22 22:00 07/31/22 22:00 07/31/22 21:53 07/31/22 21:53 07/31/22 22:00 07/31/22 21:59 07/31/22 22:00 07/31/22 21:59 07/31/22 21:55 07/31/22 21:55 07/31/22 21:50 07/31/22 21:50 07/31/22 21:49 07/31/22 21:49 07/31/22 21:45 07/31/22 21:45 07/31/22 21:44 07/31/22 21:44 07/31/22 21:40 07/31/22 21:40 07/31/22 21:35 07/31/22 21:35 07/31/22 21:30 07/31/22 21:30 07/31/22 21:26 07/31/22 21:26 07/31/22 21:25 07/31/22 21:25 07/31/22 21:21 07/31/22 21:21 07/31/22 21:20 07/31/22 21:20 07/31/22 21:16 07/31/22 21:16 07/31/22 21:15 07/31/22 21:15 07/31/22 21:12 07/31/22 21:12 07/31/22 21:10 07/31/22 21:10 07/31/22 21:07 07/31/22 21:07 07/31/22 21:05 07/31/22 21:05 07/31/22 21:00 07/31/22 21:00 07/31/22 21:01 07/31/22 21:01 07/31/22 21:00 07/31/22 21:00 07/31/22 20:59 07/31/22 20:59 07/31/22 20:57 07/31/22 20:57 07/31/22 20:55 07/31/22 20:55 07/31/22 20:55 07/31/22 20:53 07/31/22 20:53 07/31/22 20:49 07/31/22 20:49 07/31/22 20:51 07/31/22 20:51 07/31/22 20:50 07/31/22 20:49 07/31/22 20:50 07/31/22 20:49 07/31/22 20:47 07/31/22 20:47 07/31/22 20:45 07/31/22 20:45 07/31/22 20:40 07/31/22 20:40 07/31/22 20:35 07/31/22 20:35 07/31/22 20:30 07/31/22 20:30 07/31/22 20:25 07/31/22 20:25 07/31/22 20:20 07/31/22 20:20 07/31/22 20:15 07/31/22 20:15 07/31/22 20:14 07/31/22 20:14 07/31/22 20:11 07/31/22 20:11 07/31/22 20:10 07/31/22 20:10 07/31/22 19:37 07/31/22 19:37 07/31/22 18:32 <Katie Leonard MD, FACOG - Last Filed: 08/01/22 07:14> Co-Signing Physician Notes Resident Physician Supervision Note: I interviewed and examined the patient. Discussed with Dr. Gutierrez and agree with findings and plan as documented in the note. Any exceptions or clarifications are listed here: Doing well. Routine care. Documented By: Katie Leonard MD, FACOG Resident Activity Tracking <Rose Gutierrez, - Last Filed: 08/01/22 07:03> Resident Involvement: Resident Care Provided Care Provided: OB Delivery (Post )
[2022-08-01 07:43] LABS: Hematocrit (blood only) 30.8 % (34.1-44.9); Hemoglobin 10.2 g/dl (12.0-16.0)
[2022-08-01] MEDS: DOCUSATE SODIUM 100 MG CAP PO SCH ×2 (08:28→20:14)
[2022-08-01] MEDS: PRENATAL VITAMIN 1 TAB PO SCH (08:28)
[2022-08-01] MEDS ORDERED: bisacodyL 5 MG TABEC PO SCH (20:00)
--- NOTE | 2022-08-02 05:38 | Obstetrical Progress Note ---
Date of Service <Rose SScotty Gutierrez, DO - Last Filed: 08/02/22 07:01> August 02, 2022 Assessment & Plan <Rose Gutierrez DO - Last Filed: 08/02/22 07:01> (1) Status post vaginal delivery: continue OOB, ambulation, diet as tolerated <Alexa Evans, DO - Last Filed: 08/02/22 08:01> (1) Status post vaginal delivery: Subjective <Rose Gutierrez, DO - Last Filed: 08/02/22 07:01> Nidia is a 31 y/o female who is now PPD # 2 following spontaneous vaginal delivery at 40 4/7 weeks. Reports feeling well overall this morning. Mild abdominal cramping pain well managed on analgesics. Voiding. Tolerating meals overnight and able to ambulate some. Some persistent lochia with some improvement this morning. Breast feeding. Review of Systems Denies fever, chills, sweats Denies shortness of breath, difficulty breathing, chest pain, palpitations, chest pressure. Denies breast pain. Denies dysuria. Denies headache or changes in vision. Physical Exam <Rose Carlito Gutierrez DO - Last Filed: 08/02/22 07:01> General: Alert, oriented. No acute distress. Cardiac: Regular rate and rhythm, no murmurs/rubs/gallops. Respiratory: Clear to auscultation bilaterally a/p, no wheezes/rales/rhonchi. No increased work of breathing. Symmetrical chest rise. No respiratory distress. Abdomen: Soft, nontender, nondistended. Uterus: Uterine fundus firm, palpable 3 cm below umbilicus. Lower Extremities: No lower extremity edema or swelling. No deep calf pain. Opal's negative bilaterally. Results & Data ([facility]) <Rose MadridScotty Gutierrez, DO - Last Filed: 08/02/22 07:01> Vital Signs (Past 12 Hours) Vital Signs Temp Pulse Resp BP Pulse Ox O2 Del Method 08/02/22 00:00 36.5 C 63 18 130/70 97 Room Air <Alexa Evans, DO - Last Filed: 08/02/22 08:01> Co-Signing Physician Notes Resident Physician Supervision Note: I interviewed and examined the patient. Discussed with Dr. Gutierrez and agree with findings and plan as documented in the note. Any exceptions or clarifications are listed here: PPD#2 doing well. DC home, instructions reviewed. Documented By: Alexa Evans DO Resident Activity Tracking <Rose Gutierrez DO - Last Filed: 08/02/22 07:01> Resident Involvement: Resident Care Provided Care Provided: OB Delivery (Post )
[2022-08-02] MEDS: PRENATAL VITAMIN 1 TAB PO SCH (08:06)
[2022-08-02] MEDS: DOCUSATE SODIUM 100 MG CAP PO SCH (08:06)
[2022-08-02] MEDS: IBUPROFEN 600 MG TAB PO PRN (08:06)
== END 2022-08-02 15:00 | disposition home or self-care (01) | DRG 807 ==
LOC: OPB 18:24 → 4S1 18:25 → 4E1 08-01 01:34

== ENCOUNTER 2024-09-08 07:47 | Inpatient (IN) ==
--- NOTE | 2024-09-08 08:18 | History & Physical Report ---
Date of Service September 08, 2024 Assessment & Plan (1) Encounter for supervision of normal intrauterine in multigravida, antepartum: (2) LGA (large for gestational age) fetus affecting management of mother: Plan Starting Pitocin 2, and increasing by 2 with LR at 50mls/hr Consult anesthesiology as needed Monitor BPs Admission and Anticipated Discharge Date Admission Date: September 08, 2024 History of Present Illness Primary Care Provider: Jolly Toney DO Pt is a 33 yo female at 39w0d per LMP who presents of IOL. was complicated by LGA. This morning, pt reports feeling well. Pt denies CP, JANG, SOB, increase in LE edema, RUQ pain, or leakage of fluid. Pt endorses regular movement of baby. Allergies Allergy/AdvReac Type Severity Reaction Status Date / Time No Known Allergies Allergy Verified 09/07/24 10:02 Home Medications Medication Instructions Recorded Confirmed Type breast pump #1 ea 08/02/22 09/07/24 Rx xigaiktx-egk-Gd-FA 1 mg PO DAILY 01/28/24 09/08/24 History [ Plus] ferrous sulfate 325 mg (65 mg 325 mg PO Q OTHER DAY 07/13/24 09/08/24 History iron) tablet (Feosol) Supercream (OBGYN) Valatie See Rx Instructions topical 09/03/24 09/07/24 Rx Apothecary 15 g ointment .COMPLEX #15 grams Patient History Medical History Normal labor 40 weeks gestation of Prior miscarriage with , antepartum Hx of varicella LGSIL on Pap smear of cervix Surgical History [place] teeth removed Family History Aunt Colorectal cancer Grandmother (Paternal) Ovarian cancer Grandfather (Maternal) Diabetes Denies family history of Breast cancer Social History (Updated 01/28/24 @ 10:53 by Betty Houser, RAYMUNDO) Smoking Status: Never smoker Do You Dip or Chew Tobacco: No; Hx Alcohol Use: No Hx Substance Use: No Preferred Language: French Communication Ability: Effective Traffic Lieutenant Required: No Beliefs That Will Affect Care: None marital status: marital status details: Braeden Almonte (31) [phone] Current Living Situation: Spouse Current Living Situation Comment: lives with spouse, 2 children, dog current occupational status: unemployed 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 Other Information That Helps Us Care for You: No Feels Safe at Home: Yes Safety Concerns: Feels Safe At This Time Childhood Exposure to Second-Hand Smoke: No Diet: regular Dental Care, Regularly: Yes Do you think of yourself as: straight/heterosexual Gender Identity: Female Assistive Devices: None Review of Systems As per HPI Physical Exam Constitutional: WD/WN, vitals as above Respiratory: normal respiratory effort; no respiratory distress and no labored breathing Cardiovascular: Rate/Rhythm: regular rate and regular rhythm Extremities: no edema Gastrointestinal (Abdomen): Inspection/Auscultation: abdomen normal to inspection Uterine fundus firm Neurologic: PERRL, EOMI, accommodation nl, no face palsy, no dysarthria Moving all 4 extremities on command Psychiatric: A+Ox3, euthymic affect Genitourinary: Manual OB Exam: + cervical dilation (Soft and anterior) 4 cm, + cervical effacement 70% (75%) and + station -2 Results & Data Vital Signs (Past 12 Hours) Vital Signs Pulse BP 09/08/24 08:03 108 H 117/75 Supervising Physician Co-Signing Physician Notes Resident Physician Supervision Note: I interviewed and examined the patient. Discussed with Dr. Hanna and agree with findings and plan as documented in the note. Any exceptions or clarifications are listed here: Patient is a with iup at 39 weeks with hx of a 9#10oz delivery in her last . This baby appears lga too. Desires iol. cx favorable. Plan pitocin and arom as indicated. epidural on demand. fetus category one. rare contraction. Documented By: Katie Leonadr MD, FACOG Resident Activity Tracking Resident Involvement: Resident Care Provided Care Provided: Adult Hospital Medicine
[2024-09-08] MEDS ORDERED: OXYTOCIN 30 UNITS/NSS 30 UNITS/500 ML BAG IV PRN (08:29)
[2024-09-08] MEDS ORDERED: LIDOCAINE 1% LOCAL 20 ML VIAL INFIL PRN (08:29)
[2024-09-08] MEDS: LACTATED RINGER'S 1,000 ML IV SCH (09:00)
[2024-09-08 09:12] LABS: Hematocrit (blood only) 30.5 % (37.0-47.0); Hemoglobin 9.9 g/dl (12.0-16.0); Mean Corpuscular Hemoglobin 26.5 pg (25.0-34.0); Mean Corpuscular Hgb Conc 32.5 g/dL (32.0-36.0); Mean Corpuscular Volume 81.6 fL (80.0-100.0); Platelet Count 238 K/uL (130-400); RDW Coefficient of Variation 15.7 % (11.5-14.5); RDW Standard Deviation 46.1 fL (36.4-46.3); Red Blood Count 3.74 M/uL (4.20-5.40); White Blood Count 10.77 K/ul (4.8-10.8)
[2024-09-08] MEDS: OXYTOCIN 30 UNITS/NSS 30 UNITS/500 ML BAG IV PRN (09:14)
[2024-09-08] MEDS ORDERED: LIDOCAINE 2%/EPINEPHRINE 1:200,000 20 ML PF ONE (13:10)
[2024-09-08] MEDS ORDERED: ePHEDrine sulfate 50 MG/ML AMP ONE (13:10)
[2024-09-08] MEDS ORDERED: SODIUM CHLORIDE 0.9% PF INJ 10 ML VIAL ONE (13:10)
[2024-09-08] MEDS ORDERED: diphenhydrAMINE 50 MG/ML VIAL IV PRN (14:39)
[2024-09-08] MEDS ORDERED: LIDOCAINE 2%/EPINEPHRINE 1:200,000 20 ML PF EPI STA (14:39)
[2024-09-08] MEDS ORDERED: NALOXONE HCL 1 MG in SODIUM CHLORIDE 0.9% 1,000 ML IV PRN (14:39)
[2024-09-08] MEDS ORDERED: ROPIVACAINE 0.5% PF 5 MG/ML 20 ML VIAL EPI PRN (14:39)
[2024-09-08] MEDS ORDERED: fentaNYL citrate PF 100 MCG/2 ML VIAL EPI PRN (14:39)
[2024-09-08] MEDS ORDERED: BUPIVACAINE 0.25% PF 30 ML VIAL EPI STA (14:39)
[2024-09-08] MEDS ORDERED: SODIUM CHLORIDE 0.9% PF INJ 10 ML VIAL EPI STA (14:39)
[2024-09-08] MEDS ORDERED: BUPIVACAINE 0.25% PF 30 ML VIAL EPI PRN (14:39)
[2024-09-08] MEDS ORDERED: NALOXONE HCL 0.4 MG/1 ML VIAL/CARP IV PRN (14:39)
[2024-09-08] MEDS ORDERED: SODIUM CHLORIDE 0.9% PF INJ 10 ML VIAL EPI PRN (14:39)
[2024-09-08] MEDS ORDERED: NALBUPHINE HCL INJ 10 MG/ML AMP IV PRN (14:39)
[2024-09-08] MEDS ORDERED: LIDOCAINE 2% MPF LOCAL 5 ML VIAL EPI PRN (14:39)
[2024-09-08] MEDS ORDERED: fentaNYL citrate PF 100 MCG/2 ML VIAL EPI STA (14:39)
--- NOTE | 2024-09-08 14:46 | Anesthesiology Consultation ---
Date of Service September 08, 2024 Assessment & Plan (1) Encounter for pre-operative examination: Chart Review Chart Review: Patient NOT seen in Pre Admission Testing and Acceptable Risk for Labor Epidural Consults Requested none History Height/Weight Height: 5 ft 4 in Weight: 88.904 kg Allergies Allergy/AdvReac Type Severity Reaction Status Date / Time No Known Allergies Allergy Verified 09/07/24 10:02 Medications Home Medications Medication Instructions Recorded Confirmed Last Taken breast pump #1 ea 08/02/22 09/07/24 Unknown nnirsoqa-clm-Jp-FA 1 mg PO DAILY 01/28/24 09/08/24 09/07/24 [ Plus] ferrous sulfate 325 mg (65 mg 325 mg PO Q OTHER DAY 07/13/24 09/08/24 Unknown iron) tablet (Feosol) Supercream (OBGYN) [place] See Rx Instructions topical 09/03/24 09/07/24 Unknown Apothecary 15 g ointment .COMPLEX #15 grams Active Medications Generic Name Dose Route Start Last Admin Trade Name Jazlyn PRN Reason Stop Dose Admin Oxytocin 30 units in 500 mls @ 10 mls/hr 09/08/24 08:08 09/08/24 12:55 Pitocin 30 Units/Nss IV 09/10/24 08:07 0.6 units/hr .Q24H PRN 10 mls/hr Labor Induction/Augmentation Titration Protocol 0.6 UNITS/HR Lactated Ringer's 1,000 mls @ 50 mls/hr 09/08/24 08:15 09/08/24 14:05 Lr IV 09/09/24 08:14 50 mls/hr .Q20H FERNY Infusion Past Medical History Medical History (Updated 09/08/24 @ 14:46 by Izaiah Garner MD) Encounter for pre-operative examination Normal labor 40 weeks gestation of Prior miscarriage with , antepartum Hx of varicella LGSIL on Pap smear of cervix Exercise / Class Metabolic Activity II 4-5 Yardwork/Stairs/Walk up hill Past Family History Family History Aunt Colorectal cancer Grandmother (Paternal) Ovarian cancer Grandfather (Maternal) Diabetes Denies family history of Breast cancer Past Surgical History Surgical History [place] teeth removed Past Anesthesia History No Hx of Anesthesia Complications and No Family Hx of Anesthesia Complications Social History Smoking Status: Never smoker Do You Dip or Chew Tobacco: No Hx Alcohol Use: No Hx Substance Use: No substance use type: does not use Physical Exam Vital Signs Last Vital Signs Temp 36.6 C 09/08/24 12:30 Pulse 100 H 09/08/24 15:03 Resp 20 09/08/24 14:45 BP 130/72 09/08/24 13:34 Pulse Ox 100 09/08/24 15:03 Testing Laboratory Results 09/08/24 08:50 Blood Type O Positive 09/08/24 08:50 Antibody Screen NEGATIVE 09/08/24 08:50
[2024-09-08] MEDS: BUPIVACAINE 0.25% PF 30 ML VIAL ONE (14:57)
[2024-09-08] MEDS: fentaNYL citrate PF 100 MCG/2 ML VIAL ONE (14:57)
[2024-09-08] MEDS: fentANYL 2 MCG/ML BUPIVacaine 0.125%-NSS 100ML BAG ONE (15:12)
[2024-09-08] MEDS: ePHEDrine sulfate 50 MG/ML AMP IV PRN (15:26)
--- NOTE | 2024-09-08 15:55 | Labor Progress Brief Note ---
Date of Service September 08, 2024 Subjective comfortable with epidural Assessment & Plan (1) LGA (large for gestational age) fetus affecting management of mother: Plan continue iol, fetus category one. anticipate . Admission and Anticipated Discharge Date Admission Date: September 08, 2024 Physical Exam 2 Physical Exam: cx--4/75/-2 toco--q2-3, pit at 10 efm--120s with mod variability, accels to 160s, no decels arom--clear Results & Data Vital Signs (Past 12 Hours) Vital Signs Temp Pulse Resp BP Pulse Ox 09/08/24 15:52 75 09/08/24 15:52 86/51 L 09/08/24 15:51 75 09/08/24 15:51 88/55 L 09/08/24 15:48 99 09/08/24 15:48 93 H 09/08/24 15:43 98 09/08/24 15:43 102 H 09/08/24 15:40 102 H 09/08/24 15:40 112/61 09/08/24 15:38 99 09/08/24 15:38 108 H 09/08/24 15:33 99 09/08/24 15:33 100 H 09/08/24 15:33 101 H 09/08/24 15:33 115/56 L 09/08/24 15:29 111 H 09/08/24 15:29 120/61 09/08/24 15:28 98 09/08/24 15:28 115 H 09/08/24 15:24 70 09/08/24 15:24 80/48 L 09/08/24 15:23 98 09/08/24 15:23 69 09/08/24 15:22 73 09/08/24 15:22 75/41 L 09/08/24 15:21 57 L 09/08/24 15:21 90/54 L 09/08/24 15:18 100 09/08/24 15:18 78 09/08/24 15:17 106 H 09/08/24 15:17 105/61 09/08/24 15:16 37 C 20 09/08/24 15:15 110 H 09/08/24 15:15 111/65 09/08/24 15:13 99 09/08/24 15:13 112 H 09/08/24 15:13 118/62 11/27/24 15:11 113 H 09/08/24 15:11 112/58 L 09/08/24 15:10 106 H 09/08/24 15:10 122/58 L 09/08/24 15:08 98 09/08/24 15:08 115 H 09/08/24 15:03 100 09/08/24 15:03 100 H 09/08/24 14:58 100 09/08/24 14:58 116 H 09/08/24 14:53 100 09/08/24 14:53 112 H 09/08/24 14:45 20 09/08/24 14:45 20 09/08/24 14:30 18 09/08/24 14:30 18 09/08/24 14:00 18 09/08/24 14:00 18 09/08/24 13:34 103 H 09/08/24 13:34 130/72 09/08/24 13:30 20 09/08/24 13:30 20 09/08/24 12:54 102 H 09/08/24 12:54 119/73 09/08/24 12:30 20 09/08/24 12:30 36.6 C 20 09/08/24 12:00 18 09/08/24 12:00 18 09/08/24 12:00 109 H 09/08/24 12:00 129/66 09/08/24 11:30 18 09/08/24 11:30 18 09/08/24 11:16 109 H 09/08/24 11:16 137/74 09/08/24 11:00 18 09/08/24 11:00 18 09/08/24 10:30 105 H 09/08/24 10:30 120/71 09/08/24 10:00 18 09/08/24 10:00 18 09/08/24 09:30 18 09/08/24 09:30 18 09/08/24 09:15 103 H 09/08/24 09:15 136/81 09/08/24 09:00 18 09/08/24 09:00 18 09/08/24 08:16 36.7 C 20 09/08/24 08:03 108 H 117/75 Coding Level of Care Code None Diagnoses LGA (large for gestational age) fetus affecting management of mother O36.60X0
[2024-09-08] MEDS: ONDANSETRON INJ 2 MG/ML 2 ML VIAL IV PRN (19:46)
[2024-09-08] MEDS: fentANYL 2 MCG/ML BUPIVacaine 0.125%-NSS 100ML BAG EPI PRN (22:59)
--- NOTE | 2024-09-08 23:30 | Delivery Summary ---
Vaginal Delivery Summary Date of Service September 08, 2024 Vaginal Delivery Summary and 2nd Degree LAC Pre-operative Diagnosis: at 39 weeks hx of lga baby Post-operative Diagnosis: same shoulder dystocia Procedure: pitocin induction epidural arom QBL: 100cc Anesthesia: epidural Procedure: Patient progressed to c/c/+2 station. The patient pushed for one contraction to deliver a viable male in cody position. there was no nuchal cord. Immediate attempt to deliver the anterior shoulder unsuccessful. McRobers and suprapubic pressure applied without success. these maneuvers were then stopped and the tobacco stemmer reached posteriorly pulling the posterior should forward and rotating to the maternal left. the shoulder then delivered and the rest of the baby delivered easily. The baby was vigorous. The nose and mouth were bulb suctioned and the was placed in the maternal abdomen for drying and attention. Cord was clamped and cut at one minute of life. Cord blood and segment obtained. Placenta manually extracted, intact with a three vessel cord. Cervix/sulci/rectum/perineum were intact. Hemostasis obtained with dilute pitocin and fundal massage. Apgars were 8/9. Mother and baby doing well at the end of the delivery. Shoulder dystocia lasted for approximately 20secs. [facility] Vaginal Delivery Charge Delivery Type Details: and 2nd Degree LAC
[2024-09-09] MEDS ORDERED: HYDROCORTISONE ACETATE 25 MG SUPP PR PRN (01:25)
[2024-09-09] MEDS ORDERED: oxyCODONE/ACETAMINOPHEN 5mg/325mg TAB PO PRN (01:25)
[2024-09-09] MEDS ORDERED: BENZOCAINE 20% SPRY 85 APPLN/85 GM CAN EXT PRN (01:25)
[2024-09-09] MEDS ORDERED: OXYTOCIN 30 UNITS/NSS 30 UNITS/500 ML BAG IV PRN (01:25)
[2024-09-09] MEDS ORDERED: ACETAMINOPHEN 325 MG TAB PO PRN (01:25)
[2024-09-09] MEDS: IBUPROFEN 600 MG TAB PO PRN (03:54)
--- NOTE | 2024-09-09 05:50 | Obstetrical Progress Note ---
Date of Service September 09, 2024 Assessment & Plan (1) LGA (large for gestational age) fetus affecting management of mother: (2) Encounter for care and examination after delivery: Plan Encourage ambulation Pain meds as needed Encourage breast feeding Monitor BP Anticipate DC 09/10/24 Admission and Anticipated Discharge Date Admission Date: September 08, 2024 Supervising Physician Co-Signing Physician Notes Resident Physician Supervision Note: I interviewed and examined the patient. Discussed with Dr. Hanna and agree with findings and plan as documented in the note. Any exceptions or clarifications are listed here: Doing well. no concerns, routine care. Documented By: Katie Leonard MD, FACOG Subjective Pt is 33 yo post- day 1 s/p at 39w. complicated by LGA and shoulder dystocia. Ambulation:In room Voiding:voiding normally Passing gas: yes BM: No Diet tolerance:regular diet Lochia:bloody, no clots Feeding type: breast Current pain level: 3 /10 improved with ibuprofen Resting comfortably this morning in NAD. Denies JANG, CP, SOB, N/V/D, LE pain/swelling. Review of Systems Review of Systems: As per HPI Physical Exam Constitutional: WD/WN, vitals as above Respiratory: normal respiratory effort, lungs clear to auscultation Gastrointestinal (Abdomen): normal bowel sounds, soft, nontender, no hepatosplenomegaly Uterine fundus firm and at level of umbilicus Neurologic: PERRL, EOMI, accommodation nl, no face palsy, no dysarthria Moving all 4 extremities on command Psychiatric: A+Ox3, euthymic affect Results & Data Vital Signs (Past 12 Hours) Vital Signs Temp Pulse Pulse Resp BP BP Pulse Ox 09/09/24 03:39 36.6 C 79 16 127/75 98 09/09/24 01:44 36.8 C 89 18 113/70 97 09/09/24 01:20 109 H 18 107/65 09/09/24 01:05 105 H 117/64 09/09/24 00:50 106 H 18 114/64 09/09/24 00:35 115 H 112/60 09/09/24 00:21 118 H 18 114/58 L 09/09/24 00:05 111 H 18 125/74 09/08/24 23:50 18 09/08/24 23:50 18 09/08/24 23:50 110 H 09/08/24 23:50 116/68 09/08/24 23:35 18 09/08/24 23:35 18 09/08/24 23:35 106 H 09/08/24 23:35 123/72 09/08/24 23:23 98 09/08/24 23:23 111 H 09/08/24 23:20 18 09/08/24 23:20 18 09/08/24 23:20 104 H 09/08/24 23:20 118/63 09/08/24 23:18 97 09/08/24 23:18 113 H 09/08/24 23:13 97 09/08/24 23:13 111 H 09/08/24 23:13 112 H 09/08/24 23:13 113/61 09/08/24 23:08 100 09/08/24 23:08 117 H 09/08/24 23:03 99 09/08/24 23:03 112 H 09/08/24 22:58 98 09/08/24 22:58 117 H 09/08/24 22:58 115/56 L 09/08/24 22:55 111 H 09/08/24 22:55 110/61 09/08/24 22:53 97 09/08/24 22:53 115 H 09/08/24 22:48 97 09/08/24 22:48 110 H 09/08/24 22:43 99 09/08/24 22:43 108 H 09/08/24 22:38 97 09/08/24 22:38 108 H 09/08/24 22:33 97 09/08/24 22:33 115 H 09/08/24 22:28 97 09/08/24 22:28 111 H 09/08/24 22:27 115 H 09/08/24 22:27 105/57 L 09/08/24 22:23 96 09/08/24 22:23 116 H 09/08/24 22:18 97 09/08/24 22:18 111 H 09/08/24 22:13 97 09/08/24 22:13 115 H 09/08/24 22:12 111 H 09/08/24 22:12 106/55 L 09/08/24 22:08 98 09/08/24 22:08 105 H 09/08/24 22:05 94 09/08/24 22:05 106 H 09/08/24 22:03 98 09/08/24 22:03 118 H 09/08/24 21:58 98 09/08/24 21:58 107 H 09/08/24 21:58 113 H 09/08/24 21:58 105/56 L 09/08/24 21:53 97 09/08/24 21:53 109 H 09/08/24 21:48 97 09/08/24 21:48 106 H 09/08/24 21:44 96 H 09/08/24 21:44 114/73 09/08/24 21:43 99 09/08/24 21:43 99 H 09/08/24 21:38 95 09/08/24 21:38 93 H 09/08/24 21:33 96 09/08/24 21:33 95 H 09/08/24 21:28 99 09/08/24 21:28 107 H 09/08/24 21:27 100 H 09/08/24 21:27 121/68 09/08/24 21:23 99 09/08/24 21:23 103 H 09/08/24 21:18 99 09/08/24 21:18 106 H 09/08/24 21:13 96 09/08/24 21:13 100 H 09/08/24 21:13 120/67 09/08/24 21:08 96 09/08/24 21:08 93 H 09/08/24 21:03 98 09/08/24 21:03 108 H 09/08/24 21:00 36.8 C 09/08/24 20:59 89 09/08/24 20:59 115/64 09/08/24 20:58 96 09/08/24 20:58 88 09/08/24 20:53 96 09/08/24 20:53 88 09/08/24 20:48 97 09/08/24 20:48 102 H 09/08/24 20:43 96 09/08/24 20:43 98 H 09/08/24 20:42 83 09/08/24 20:42 113/69 09/08/24 20:39 93 09/08/24 20:39 105 H 09/08/24 20:38 96 09/08/24 20:38 106 H 09/08/24 20:33 95 09/08/24 20:33 104 H 09/08/24 20:28 96 09/08/24 20:28 113 H 09/08/24 20:28 109/64 09/08/24 20:23 98 09/08/24 20:23 123 H 09/08/24 20:18 97 09/08/24 20:18 108 H 09/08/24 20:13 97 09/08/24 20:13 109 H 09/08/24 20:13 117/72 09/08/24 20:08 98 09/08/24 20:08 112 H 09/08/24 20:03 97 09/08/24 20:03 112 H 09/08/24 19:58 97 09/08/24 19:58 110 H 09/08/24 19:57 120 H 09/08/24 19:57 116/69 09/08/24 19:53 97 09/08/24 19:53 110 H 09/08/24 19:48 99 09/08/24 19:48 136 H 09/08/24 19:44 133 H 09/08/24 19:44 117/63 09/08/24 19:43 99 09/08/24 19:43 130 H 09/08/24 19:38 97 09/08/24 19:38 118 H 09/08/24 19:33 99 09/08/24 19:33 118 H 09/08/24 19:28 100 09/08/24 19:28 118 H 09/08/24 19:28 116/65 09/08/24 19:23 97 09/08/24 19:23 115 H 09/08/24 19:18 99 09/08/24 19:18 96 H 09/08/24 19:13 98 09/08/24 19:13 119 H 09/08/24 19:13 118/69 09/08/24 19:08 98 09/08/24 19:08 114 H 09/08/24 19:03 98 09/08/24 19:03 121 H 09/08/24 18:58 98 09/08/24 18:58 114 H 09/08/24 18:57 18 09/08/24 18:57 36.6 C 18 09/08/24 18:57 118 H 09/08/24 18:57 110/63 09/08/24 18:53 98 09/08/24 18:53 123 H 09/08/24 18:48 98 09/08/24 18:48 122 H 09/08/24 18:44 115 H 09/08/24 18:44 116/69 09/08/24 18:43 99 09/08/24 18:43 117 H 09/08/24 18:38 99 09/08/24 18:38 100 H 09/08/24 18:33 96 09/08/24 18:33 109 H 09/08/24 18:28 98 09/08/24 18:28 110 H 09/08/24 18:27 107 H 09/08/24 18:27 103/52 L 09/08/24 18:23 98 09/08/24 18:23 109 H 09/08/24 18:18 97 09/08/24 18:18 112 H 09/08/24 18:13 97 09/08/24 18:13 111 H 09/08/24 18:12 107 H 09/08/24 18:12 105/59 L 09/08/24 18:08 98 09/08/24 18:08 108 H 09/08/24 18:03 98 09/08/24 18:03 108 H 09/08/24 18:00 115 H 09/08/24 18:00 101/59 L 09/08/24 17:58 100 09/08/24 17:58 117 H 09/08/24 17:53 100 09/08/24 17:53 111 H 09/08/24 17:48 99 09/08/24 17:48 111 H O2 Del Method 09/09/24 03:39 Room Air 09/09/24 01:44 Room Air 09/09/24 01:20 09/09/24 01:05 09/09/24 00:50 09/09/24 00:35 09/09/24 00:21 09/09/24 00:05 09/08/24 23:50 09/08/24 23:50 09/08/24 23:50 09/08/24 23:50 09/08/24 23:35 09/08/24 23:35 09/08/24 23:35 09/08/24 23:35 09/08/24 23:23 09/08/24 23:23 09/08/24 23:20 09/08/24 23:20 09/08/24 23:20 09/08/24 23:20 09/08/24 23:18 09/08/24 23:18 09/08/24 23:13 09/08/24 23:13 09/08/24 23:13 09/08/24 23:13 09/08/24 23:08 09/08/24 23:08 09/08/24 23:03 09/08/24 23:03 09/08/24 22:58 09/08/24 22:58 09/08/24 22:58 09/08/24 22:55 09/08/24 22:55 09/08/24 22:53 09/08/24 22:53 09/08/24 22:48 09/08/24 22:48 09/08/24 22:43 09/08/24 22:43 09/08/24 22:38 09/08/24 22:38 09/08/24 22:33 09/08/24 22:33 09/08/24 22:28 09/08/24 22:28 09/08/24 22:27 09/08/24 22:27 09/08/24 22:23 09/08/24 22:23 09/08/24 22:18 09/08/24 22:18 09/08/24 22:13 09/08/24 22:13 09/08/24 22:12 09/08/24 22:12 09/08/24 22:08 09/08/24 22:08 09/08/24 22:05 09/08/24 22:05 09/08/24 22:03 09/08/24 22:03 09/08/24 21:58 09/08/24 21:58 09/08/24 21:58 09/08/24 21:58 09/08/24 21:53 09/08/24 21:53 09/08/24 21:48 09/08/24 21:48 09/08/24 21:44 09/08/24 21:44 09/08/24 21:43 09/08/24 21:43 09/08/24 21:38 09/08/24 21:38 09/08/24 21:33 09/08/24 21:33 09/08/24 21:28 09/08/24 21:28 09/08/24 21:27 09/08/24 21:27 09/08/24 21:23 09/08/24 21:23 09/08/24 21:18 09/08/24 21:18 09/08/24 21:13 09/08/24 21:13 09/08/24 21:13 09/08/24 21:08 09/08/24 21:08 09/08/24 21:03 09/08/24 21:03 09/08/24 21:00 09/08/24 20:59 09/08/24 20:59 09/08/24 20:58 09/08/24 20:58 09/08/24 20:53 09/08/24 20:53 09/08/24 20:48 09/08/24 20:48 09/08/24 20:43 09/08/24 20:43 09/08/24 20:42 09/08/24 20:42 09/08/24 20:39 09/08/24 20:39 09/08/24 20:38 09/08/24 20:38 09/08/24 20:33 09/08/24 20:33 09/08/24 20:28 09/08/24 20:28 09/08/24 20:28 09/08/24 20:23 09/08/24 20:23 09/08/24 20:18 09/08/24 20:18 09/08/24 20:13 09/08/24 20:13 09/08/24 20:13 09/08/24 20:08 09/08/24 20:08 09/08/24 20:03 09/08/24 20:03 09/08/24 19:58 09/08/24 19:58 09/08/24 19:57 09/08/24 19:57 09/08/24 19:53 09/08/24 19:53 09/08/24 19:48 09/08/24 19:48 09/08/24 19:44 09/08/24 19:44 09/08/24 19:43 09/08/24 19:43 09/08/24 19:38 09/08/24 19:38 09/08/24 19:33 09/08/24 19:33 09/08/24 19:28 09/08/24 19:28 09/08/24 19:28 09/08/24 19:23 09/08/24 19:23 09/08/24 19:18 09/08/24 19:18 09/08/24 19:13 09/08/24 19:13 09/08/24 19:13 09/08/24 19:08 09/08/24 19:08 09/08/24 19:03 09/08/24 19:03 09/08/24 18:58 09/08/24 18:58 09/08/24 18:57 09/08/24 18:57 09/08/24 18:57 09/08/24 18:57 09/08/24 18:53 09/08/24 18:53 09/08/24 18:48 09/08/24 18:48 09/08/24 18:44 09/08/24 18:44 09/08/24 18:43 09/08/24 18:43 09/08/24 18:38 09/08/24 18:38 09/08/24 18:33 09/08/24 18:33 09/08/24 18:28 09/08/24 18:28 09/08/24 18:27 09/08/24 18:27 09/08/24 18:23 09/08/24 18:23 09/08/24 18:18 09/08/24 18:18 09/08/24 18:13 09/08/24 18:13 09/08/24 18:12 09/08/24 18:12 09/08/24 18:08 09/08/24 18:08 09/08/24 18:03 09/08/24 18:03 09/08/24 18:00 09/08/24 18:00 09/08/24 17:58 09/08/24 17:58 09/08/24 17:53 09/08/24 17:53 09/08/24 17:48 09/08/24 17:48 Resident Activity Tracking Resident Involvement: Resident Care Provided Care Provided: Adult Hospital Medicine
[2024-09-09 06:42] LABS: Hematocrit (blood only) 28.7 % (37.0-47.0); Hemoglobin 9.4 g/dl (12.0-16.0)
[2024-09-09] MEDS: DIPHTHER/TETAN/PERTUS Vaccine (Tdap, Adol/Adult) 0.5mL IM ONE (08:28)
[2024-09-09] MEDS: PRENATAL VITAMIN 1 TAB PO SCH (08:29)
[2024-09-09] MEDS: DOCUSATE SODIUM 100 MG CAP PO SCH (08:29)
--- NOTE | 2024-09-09 11:49 | Anesthesia Procedure Note ---
Date of Service September 09, 2024 Anesthesia Post Epidural Note Vital Signs Vital Signs: Temp Pulse Resp BP Pulse Ox O2 Del Method 36.7 C 98 H 16 126/82 96 Room Air 09/09/24 07:34 09/09/24 07:34 09/09/24 07:34 09/09/24 07:34 09/09/24 07:34 09/09/24 07:34 Notes Mental Status: alert / awake / arousable Nausea / Vomiting: adequately controlled Pain: adequately controlled Airway Patency, RR, SpO2: stable & adequate BP & HR: stable & adequate Hydration State: stable & adequate Neuraxial Anesthesia: was administered and sensory block is resolving Anesthetic Complications: no major complications apparent and Pt Satisfied with anesthetic care Epidural: Removed without complications and With tip intact
[2024-09-09] MEDS: bisacodyL 5 MG TABEC PO SCH (20:34)
[2024-09-10] MEDS ORDERED: bisacodyL 10 MG SUPP PR PRN
--- NOTE | 2024-09-10 05:36 | Obstetrical Progress Note ---
Date of Service September 10, 2024 Assessment & Plan (1) LGA (large for gestational age) fetus affecting management of mother: (2) Encounter for care and examination after delivery: Plan Encourage ambulation Pain meds as needed Monitor BP Anticipate Discharge today Pt to follow up with Dr. Leonard in 6 weeks Admission and Anticipated Discharge Date Admission Date: September 08, 2024 Supervising Physician Co-Signing Physician Notes Resident Physician Supervision Note: I interviewed and examined the patient. Discussed with Dr. Hanna and agree with findings and plan as documented in the note. Any exceptions or clarifications are listed here: [None] Documented By: Nara Byers MD, FACOG Subjective Pt is 33 yo post- day 2 s/p at 39w. complicated by LGA and shoulder dystocia. Ambulation:In and out room Voiding:voiding normally Passing gas: yes BM: yes Diet tolerance:regular diet Lochia:bloody, no clots Feeding type: breast Current pain level:0-1 /10 improved with ibuprofen/tylenol Resting comfortably this morning in NAD. Denies JANG, CP, SOB, N/V/D, LE pain/swelling. Review of Systems Review of Systems: As per HPI Physical Exam Constitutional: WD/WN, vitals as above Respiratory: normal respiratory effort, lungs clear to auscultation normal respiratory effort; no respiratory distress and no labored breathing Cardiovascular: Rate/Rhythm: regular rate and regular rhythm Extremities: + edema (Trace at bilateral ankles) Gastrointestinal (Abdomen): normal bowel sounds, soft, nontender, no hepatosplenomegaly Inspection/Auscultation: abdomen normal to inspection Uterine fundus 1 cm below umbilicus Neurologic: PERRL, EOMI, accommodation nl, no face palsy, no dysarthria Psychiatric: A+Ox3, euthymic affect Genitourinary: Manual OB Exam: + cervical dilation (Soft and anterior) 4 cm, + cervical effacement 70% (75%) and + station -2 Results & Data Vital Signs (Past 12 Hours) Vital Signs Temp Pulse Resp BP O2 Del Method 09/09/24 20:00 Room Air 09/09/24 20:00 36.6 C 72 16 123/73 Room Air Resident Activity Tracking Resident Involvement: Resident Care Provided Care Provided: Adult [facility]
[2024-09-10 08:55] VITALS: BP 116/75; RESP 18; TEMP 97.5; O2SAT 95
[2024-09-10 10:59] VITALS: PULSE 70
--- NOTE | 2024-09-13 12:38 | Coding Query ---
CODING QUERY To promote full compliance with coding requirements relating to patient care, provider participation is requested in all cases of menu planner uncertainty. Please assist us with the question(s) below: Coding Question(s): Delivery note states 2nd degre laceration however body of report specifies intact perineum. Please check below the phrase that describes the laceration. Thanks for your help! GOLDEN Ralph [facility] Physician's Response(s): Pt had a 2nd degree OB laceration which was repaired ____x___ Pt delivered over an intact perineum Other: please describe: Principal Diagnosis: "that condition established after study, to be chiefly responsible for occasioning the admission of the patient to the hospital for care." Co-Existing Principal Diagnosis: "when two or more diagnoses equally meet the criteria for principal diagnosis as determined by the circumstances of admission, diagnostic work up, and/or therapy provided, and the Alphabetic Index, Tabular List, or another coding guideline does not provide sequencing direction, any one of the diagnoses may be sequenced first." "When the physician has documented what appears to be a current diagnosis in the body of the record, but has not included the diagnosis in the final diagnostic statement, the physician should be asked whether the diagnosis should be added." (Source Coding [facility] 2 QTR90. p3-4) ARUNA
== END 2024-09-10 12:46 | disposition home or self-care (01) | DRG 807 ==
LOC: 4S1 07:47 → 4E2 09-09 01:43